=== PATIENT | female | born 1985 | race Hispanic/Latino ===

== ENCOUNTER 2019-10-31 06:26 | Day surgery (SDC) | payer OTHER ==
[2019-10-27 15:58] LABS: HEMATOCRIT 39.5 % (36-48); MEAN CORPUSCULAR HEMOGLOBIN 27.3 pg (27.0-33.0); MEAN CORPUSCULAR HGB CONC 33.7 g/dL (32.0-36.0); MEAN CORPUSCULAR VOLUME 80.9 fL (79-99); PLATELET COUNT (AUTO) 329 K/uL (130-400); RED BLOOD CELL COUNT(AUTO) 4.89 MIL/uL (4.00-5.50); RED CELL DISTRIBUTION WIDTH 13.8 % (11.0-15.5); WHITE BLOOD COUNT (AUTO) 9.6 K/uL (4.8-10.8)
[2019-10-27 16:00] VITALS: BP 141/95
[2019-10-27 16:09] LABS: CREATININE 0.8 mg/dL (0.5-1.5); POTASSIUM 4.2 mmol/L (3.5-5.1)
[2019-10-27 18:27] LABS: BAND NEUTROPHILS % (MANUAL) 4 % (0-2); EOSINOPHILS % (MANUAL) 2 % (1-6); LYMPHOCYTES % (MANUAL) 13 % (22-44); MONOCYTES % (MANUAL) 6 % (2-9); REACTIVE LYMPHOCYTES 13 % (0-0); SEGMENTED NEUTROPHILS % 62 % (40-70)
[2019-10-27 18:29] LABS: MAN.DIFF COMMENT-IMPRESSION MANUAL DIFFERENTIAL
[2019-10-31] VITALS (18 sets, daily range): BP systolic 91–144; BP diastolic 53–103
[~2019-10-31] VITALS: Ht 172.7 cm; Wt 101.2 kg
[~2019-10-31 06:26] MED LIST: NAPR500T6 PO
[2019-10-31] MEDS ORDERED: LACTATED RINGERS 1000ML 1,000 ML IV ONE (06:54)
[2019-10-31] MEDS: CEFAZOLIN SODIUM 1 GM VIAL IVP SCH ×2 (07:00→07:55)
--- NOTE | 2019-10-31 07:16 | NUR ---
POTENTIAL FOR INFECTION: NO SHAVING NEEDED TO RIGHT LEGG / RT KNEE ASSESSED PER CLAUDIA RAMIREZ. WIPED RIGHT LEG / RT KNEE WITH MANISH: 2% CHLORHEXIDINE GLUCONATE CLOTH PATIENTS PRE-OP SKIN PREP PER CLAUDIA RAMIREZ.
[2019-10-31] MEDS ORDERED: SUCCINYLCHOLINE 200MG/10ML SYR ONE (07:22)
[2019-10-31] MEDS ORDERED: DEXAMETHASONE SOD PHOSPHATE 10MG/ML 1ML VIAL ONE (07:22)
[2019-10-31] MEDS ORDERED: LIDOCAINE PF 2% 5ML ABBOJECT ONE (07:22)
[2019-10-31] MEDS ORDERED: PROPOFOL 10 MG/ML 20ML VIAL IV ONE (07:23)
[2019-10-31] MEDS ORDERED: GLYCOPYRROLATE 1 MG/5 ML SYRINGE ONE (07:23)
[2019-10-31] MEDS ORDERED: MIDAZOLAM HCL 1 MG/ML 2ML VIAL ONE (07:23)
[2019-10-31] MEDS ORDERED: NEOSTIGMINE 5MG/5ML SYR IV ONE (07:23)
[2019-10-31] MEDS ORDERED: FENTANYL CITRATE PF 50 MCG/1 ML 2ML VIAL ONE ×2 (07:23→08:12)
[2019-10-31] MEDS ORDERED: ROCURONIUM 10MG/1ML SYR 10 MG/ML ML ONE (07:23)
[2019-10-31] MEDS ORDERED: ONDANSETRON HCL 4 MG/2 ML VIAL ONE (07:23)
[2019-10-31] MEDS ORDERED: BUPIVACAINE/EPI/PF 0.5% 30ML VIAL IJ ONE (07:53)
[2019-10-31] MEDS ORDERED: MEPERIDINE-PF 25 MG/ML SYG ONE (09:18)
--- NOTE | 2019-10-31 09:52 | NUR ---
PATIENT ARRIVED PATIENT BROUGHT TO DAY PATIENT VIA STRETCHER BY SLIME CHEUNG. PT AAOX3, RESPIRATIONS UNLABORED, VITAL SIGNS STABLE, DENIES ANY PAIN AT THIS TIME. DRESSING/NORMA WRAP TO LEFT KNEE IS DRY AD INTACT. SIDERAILS UP X2, BED IN LOWEST POSITION,CALL RAM IN REACH.
--- NOTE | 2019-10-31 10:15 | NUR ---
DISCHARGE INSTRUCTIONS PROVIDED TO PATIENT'S MOTHER (NATY HUDSON). FOLLOW UP APPOINTMENTS PROVIDED AND DR GRULLON'S INSTRUCTIONS ON INCISION CARE PROVIDED. ALL QUESTIONS ANSWERED. PATIENT'S MOTHER VERBALIZED UNDERSTANDING.
--- NOTE | 2019-10-31 10:28 | NUR ---
PATIENT DISCHARGED FROM FACILITY VIA WHEELCHAIR BY IZABEL LYNCH MA. PATIENT PROVIDED WITH CRUTCHES AND INSTRUCTED ON USE. PATIENT ABLE TO TRANSFER HERSELF INTO PRIVATE VEHICLE DRIVEN BY FAMILY MEMBER.
== END 2019-10-31 10:28 | disposition home or self-care (01) ==
LOC: DAH 06:26
PROVIDERS: ATTEND Orthopaedic Surgery
DX: M23.221 Derangement of posterior horn of medial meniscus due to old tear or injury, right knee (principal); M25.561 Pain in right knee; M22.41 Chondromalacia patellae, right knee; Z91.040 Latex allergy status; Z98.890 Other specified postprocedural states; Z79.899 Other long term (current) drug therapy; Z87.891 Personal history of nicotine dependence; Z82.49 Family history of ischemic heart disease and other diseases of the circulatory system
CPT/HCPCS: 29882; 36415; 80048; 84703; 85025; A4215; A4221; A4222; A4223; A4606; A4649 ×4; A4663; A5120; A6223; A6260; C1713; C1776; J0330; J0690; J1100; J2001; J2175; J2250; J2405; J2704; J2710; J3010 ×2; J3490 ×2; J7120